=== PATIENT | female | born 1975 | race African-American/Black ===

== ENCOUNTER 2018-06-04 15:40 | Emergency (ER) | payer OTHER ==
[~2018-06-04] VITALS: Ht 160 cm; Wt 74.8 kg
[2018-06-04 16:14] LABS: Urine WBC None Seen /hpf (0 - 5)
[2018-06-04 16:28] LABS: Albumin 3.5 g/dL (3.4-5.0); BUN/Creatinine Ratio 7.3; Calcium 8.4 mg/dL (8.5-10.1); Potassium 3.2 mmol/L (3.5-5.1)
[2018-06-04 16:31] LABS: Bilirubin, Total 0.4 mg/dL (0.2-1.0)
[2018-06-04 17:07] LABS: Basophils # (auto) 0 uL; Eosinophils # (auto) 0 uL; Eosinophils % (auto) 0.7 % (0.0-7.0); Hemoglobin 8.9 g/dL (12.2-16.2); Monocytes # (auto) 0.1 uL; Nucleated Red Blood Cells % 0.3 %; Platelet Count (auto) 318 10^3/uL (140-450)
[2018-06-04 17:10] LABS: Basophils % (auto) 0.9 % (0.0-2.0); Hematocrit 29.9 % (36.0-46.0); Lymphocytes # (auto) 1.7 uL; Lymphocytes % (auto) 51.9 % (10.0-50.0); Mean Corpuscular Hemoglobin 22.3 pg (28.0-32.0); Mean Corpuscular Hgb Conc. 29.8 g/dL (32.0-36.0); Mean Corpuscular Volume 74.9 fL (80.0-100.0); Monocytes % (auto) 4.1 % (0.0-12.0); Neutrophils # (auto) 1.4 uL; Neutrophils % (auto) 42.4 % (37.0-80.0); White Blood Cell 3.4 10^3/uL (4.4-10.8)
[2018-06-04 17:13] LABS: Red Cell Distribution Width 20.9 % (11.8-14.3)
[2018-06-04] MEDS: POTASSIUM EFFERVESENT TAB 25 MEQ PO ONE (17:34)
[2018-06-04 17:48] VITALS: BP 153/102
[2018-06-04 17:56] LABS: Urine Amorphous Crystal FEW /hpf (None Seen); Urine Bacteria FEW /hpf (None Seen); Urine Blood 1+ /uL (Negative); Urine Mucus FEW (None Seen); Urine Specific Gravity 1.032 (1.001-1.035)
== END 2018-06-04 17:57 | disposition home or self-care (01) ==
LOC: ER 15:50
CPT/HCPCS: 36415; 80053; 81001; 85025